=== PATIENT | female | born 1970 | race Caucasian/White ===

== ENCOUNTER 2020-05-11 22:15 | Inpatient (IN) | payer MEDICAID, OTHER ==
[~2020-05-11] VITALS: Ht 160 cm; Wt 92.3 kg
[2020-05-11] MEDS ORDERED: PANTOPRAZOLE 80 MG in SODIUM CHLORIDE 0.9% 50 ML IVPB ONE (22:21)
[2020-05-11] MEDS ORDERED: OCTREOTIDE 50 MCG/ML, 1ML (0.05MG/ML) IVPush ONE (22:30)
[2020-05-11] MEDS ORDERED: OCTREOTIDE 100MCG/ML, 1ML (0.1MG/ML) IVPush ONE (22:30)
--- NOTE | 2020-05-11 22:30 | NUR ---
THIS IS A 49Y F BIB EMS FROM [facility], PT WAS SEEN THERE FOR ABD PAIN WITH BLACK TARRY STOOLS FOR A FEW DAYS. PT RECENTLY QUIT DRINKING 5 DAYS AGO AND WAS DRINKING 1/2 LITER A DAY OF VODKA. PT DENIES ALL SYMPTOMS OF WITHDRAWL AT THIS TIME. PT CONNECTED TO ALL MONITORING VSS NADN. CALL LIGHT IN REACH.
--- NOTE | 2020-05-11 22:39 | NUR ---
DR. RHODES AT BEDSIDE FOR RECTAL EXAM, RN TO ESCORT
[2020-05-11 22:54] LABS: BASOPHILS # (AUTO) 0.02 x10^3/uL (0-0.1); BASOPHILS % (AUTO) 0 % (0-1); EOSINOPHILS # (AUTO) 0.11 x10^3/uL (0-0.4); EOSINOPHILS % (AUTO) 1 % (1-7); LYMPHOCYTES # (AUTO) 1.69 x10^3/uL (1-3.4); LYMPHOCYTES % (AUTO) 14 % (22-44); MD NO; MEAN CORPUSCULAR HEMOGLOBIN 34.7 pg (27.0-34.8); MEAN CORPUSCULAR HGB CONC 33.1 g/dL (32.4-35.8); MEAN CORPUSCULAR VOLUME 104.6 fL (80-100); MEAN PLATELET VOLUME 9.2 fL (7.4-10.4); MONOCYTES # (AUTO) 1.26 x10^3/uL (0.2-0.8); MONOCYTES % (AUTO) 11 % (2-9); NEUTROPHILS # (AUTO) 8.96 x10^3/uL (1.8-6.8); NEUTROPHILS % (AUTO) 74 % (42-75); PLATELET COUNT 252 x10^3/uL (130-400); RED BLOOD COUNT 3.74 x10^6/uL (3.82-5.3)
[2020-05-11 22:56] LABS: INTERNATIONAL NORMALIZED RATIO 1.38 (0.93-1.1); PROTHROMBIN TIME 14.3 Seconds (9.6-11.5)
[2020-05-11] MEDS ORDERED: LORazepam 2 MG/ML, 1ML IVPush ONE (23:00)
[2020-05-11] MEDS ORDERED: OCTREOTIDE 100MCG/ML, 1ML (0.1MG/ML) ONE (23:00)
[2020-05-11 23:04] LABS: ALANINE AMINOTRANSFERASE 69 U/L (12-78); ALBUMIN 2.8 g/dL (3.4-5.0); ANION GAP 9 mmol/L (5-15); CHLORIDE 98 mmol/L (98-107); CREATININE 0.72 mg/dL (0.55-1.02)
[2020-05-11 23:06] LABS: ALKALINE PHOSPHATASE 213 U/L (45-117); BILIRUBIN,TOTAL 7.1 mg/dL (0.2-1.0); TOTAL PROTEIN 6.6 g/dL (6.4-8.2)
[2020-05-11] MEDS ORDERED: LORazepam 2 MG/ML, 1ML ONE (23:12)
[2020-05-11] MEDS ORDERED: DOCUSATE 100 MG CAPSULE PO PRN (23:30)
[2020-05-11] MEDS ORDERED: LABETALOL 5MG/ML, 20ML IVPush PRN (23:30)
[2020-05-11] MEDS ORDERED: ONDANSETRON 2MG/ML, 2ML IVPush PRN (23:30)
[2020-05-12] MEDS ORDERED: LORazepam 2 MG/ML, 1ML IV PRN ×4
--- NOTE | 2020-05-12 00:01 | NUR ---
REPORT TO JADON SAUNDERS READY FOR TRANSPORT TO FLOOR ROOM [id number]
[2020-05-12 00:21] VITALS: BP 99/68
[2020-05-12] MEDS ORDERED: THIAMINE 200 MG, MVI ADULT 10 ML, FOLIC ACID 1 MG in D5%-0.9% NACL 1,000 ML IV ONE (00:30)
[2020-05-12] MEDS: OCTREOTIDE 500 MCG in SODIUM CHLORIDE 0.9% 99 ML IV SCH ×3 (03:00→21:28)
[2020-05-12] MEDS: PANTOPRAZOLE 80 MG in SODIUM CHLORIDE 0.9% 100 ML IV SCH ×3 (03:00→21:25)
[2020-05-12 05:51] LABS: CHLORIDE 102 mmol/L (98-107)
[2020-05-12 06:07] LABS: ANION GAP 7 mmol/L (5-15); CALCIUM 8.4 mg/dL (8.5-10.1); CREATININE 0.74 mg/dL (0.55-1.02)
[2020-05-12 07:24] VITALS: BP 94/66
[2020-05-12] MEDS: LORazepam 2 MG/ML, 1ML IV PRN ×2 (09:06→14:52)
[2020-05-12] MEDS ORDERED: FURO40TA6 PO (12:49)
[2020-05-12] MEDS ORDERED: TRAZ-175 PO (12:49)
[2020-05-12] MEDS ORDERED: TRIA15OI10 TP (12:49)
[2020-05-12 13:01] VITALS: BP 106/69
[2020-05-12] MEDS ORDERED: PROPOFOL 10 MG/ML, 50ML ONE (13:28)
[2020-05-12] MEDS: CEFTRIAXONE 1,000 MG in DEXTROSE 5% 50 ML IV SCH (14:56)
[2020-05-12] MEDS ORDERED: morphine SULFATE 10 MG/ML, 1ML ONE (16:23)
[2020-05-12] MEDS ORDERED: morphine SULFATE 10 MG/ML, 1ML IVPush PRN ×2 (16:30→19:30)
[2020-05-12 18:39] VITALS: BP 95/65
[2020-05-13 00:44] VITALS: BP 99/66
[2020-05-13 05:32] LABS: INTERNATIONAL NORMALIZED RATIO 1.25 (0.93-1.1); PROTHROMBIN TIME 12.9 Seconds (9.6-11.5)
[2020-05-13 05:34] LABS: ALBUMIN 2.4 g/dL (3.4-5.0); ANION GAP 5 mmol/L (5-15); CHLORIDE 105 mmol/L (98-107)
[2020-05-13 05:36] LABS: MEAN CORPUSCULAR HEMOGLOBIN 35.8 pg (27.0-34.8); MEAN CORPUSCULAR HGB CONC 33.6 g/dL (32.4-35.8); MEAN CORPUSCULAR VOLUME 106.5 fL (80-100); MEAN PLATELET VOLUME 9.1 fL (7.4-10.4); PLATELET COUNT 160 x10^3/uL (130-400); RED BLOOD COUNT 2.99 x10^6/uL (3.82-5.3); RED CELL DISTRIBUTION WIDTH 17.1 % (9.6-15.2)
[2020-05-13 05:38] LABS: ALANINE AMINOTRANSFERASE 82 U/L (12-78); ALKALINE PHOSPHATASE 150 U/L (45-117); BILIRUBIN,TOTAL 5.8 mg/dL (0.2-1.0); TOTAL PROTEIN 5.6 g/dL (6.4-8.2)
[2020-05-13 06:08] LABS: BASOPHILS # (AUTO) 0.03 x10^3/uL (0-0.1); BASOPHILS % (AUTO) 1 % (0-1); EOSINOPHILS # (AUTO) 0.19 x10^3/uL (0-0.4); EOSINOPHILS % (AUTO) 3 % (1-7); LYMPHOCYTES # (AUTO) 0.82 x10^3/uL (1-3.4); LYMPHOCYTES % (AUTO) 13 % (22-44); MD SCAN; MONOCYTES # (AUTO) 0.76 x10^3/uL (0.2-0.8); MONOCYTES % (AUTO) 12 % (2-9); NEUTROPHILS # (AUTO) 4.62 x10^3/uL (1.8-6.8); NEUTROPHILS % (AUTO) 72 % (42-75)
[2020-05-13] MEDS: PANTOPRAZOLE 80 MG in SODIUM CHLORIDE 0.9% 100 ML IV SCH (06:46)
[2020-05-13] MEDS: OCTREOTIDE 500 MCG in SODIUM CHLORIDE 0.9% 99 ML IV SCH ×2 (06:48→16:22)
[2020-05-13 06:49] VITALS: BP 95/62
[2020-05-13 13:22] VITALS: BP 98/68
[2020-05-13] MEDS: PANTOPRAZOLE 40 MG IV IVPush SCH (13:30)
[2020-05-13] MEDS: CEFTRIAXONE 1,000 MG in DEXTROSE 5% 50 ML IV SCH (15:15)
[2020-05-13] MEDS: OXYcodone/APAP 5/325MG TABLET PO PRN (15:15)
[2020-05-13 18:45] VITALS: BP 106/73
[2020-05-14 00:49] VITALS: BP 88/55
[2020-05-14] MEDS: OCTREOTIDE 500 MCG in SODIUM CHLORIDE 0.9% 99 ML IV SCH ×3 (01:47→22:28)
[2020-05-14] MEDS: PANTOPRAZOLE 40 MG IV IVPush SCH ×2 (01:53→13:21)
[2020-05-14 05:42] LABS: BASOPHILS # (AUTO) 0.09 x10^3/uL (0-0.1); BASOPHILS % (AUTO) 2 % (0-1); EOSINOPHILS % (AUTO) 4 % (1-7); LYMPHOCYTES # (AUTO) 0.77 x10^3/uL (1-3.4); LYMPHOCYTES % (AUTO) 15 % (22-44); MD NO; MEAN CORPUSCULAR HGB CONC 32.8 g/dL (32.4-35.8); MEAN CORPUSCULAR VOLUME 106.8 fL (80-100); MEAN PLATELET VOLUME 9.1 fL (7.4-10.4); MONOCYTES # (AUTO) 0.57 x10^3/uL (0.2-0.8); MONOCYTES % (AUTO) 11 % (2-9); NEUTROPHILS % (AUTO) 69 % (42-75); PLATELET COUNT 155 x10^3/uL (130-400); RED BLOOD COUNT 2.91 x10^6/uL (3.82-5.3); RED CELL DISTRIBUTION WIDTH 17.1 % (9.6-15.2)
[2020-05-14 05:55] LABS: ALBUMIN 2.3 g/dL (3.4-5.0); ANION GAP 5 mmol/L (5-15); CHLORIDE 106 mmol/L (98-107)
[2020-05-14 05:59] LABS: ALANINE AMINOTRANSFERASE 95 U/L (12-78); ALKALINE PHOSPHATASE 148 U/L (45-117); BILIRUBIN,TOTAL 5.5 mg/dL (0.2-1.0); CREATININE 0.71 mg/dL (0.55-1.02); TOTAL PROTEIN 5.7 g/dL (6.4-8.2)
[2020-05-14 06:26] VITALS: BP 98/64
[2020-05-14 13:28] VITALS: BP 101/66
[2020-05-14] MEDS ORDERED: CEFTRIAXONE PMX 1GM/50ML 50 ML IV SCH (14:00)
[2020-05-14 19:11] VITALS: BP 101/68
[2020-05-14] MEDS: OXYcodone/APAP 5/325MG TABLET PO PRN (20:25)
[2020-05-15] MEDS: PANTOPRAZOLE 40 MG IV IVPush SCH ×2 (01:40→13:30)
[2020-05-15 01:42] VITALS: BP 94/58
[2020-05-15 06:21] VITALS: BP 97/63
[2020-05-15] MEDS: OCTREOTIDE 500 MCG in SODIUM CHLORIDE 0.9% 99 ML IV SCH (09:34)
[2020-05-15] MEDS ORDERED: PROP10TA16 PO (11:55)
[2020-05-15] MEDS ORDERED: OMEP-110 PO (11:55)
[2020-05-15 12:07] VITALS: BP 97/63
[2020-05-15] MEDS ORDERED: PROPRANOLOL 10 MG TABLET PO SCH (18:00)
== END 2020-05-15 14:40 | disposition home or self-care (01) | DRG 368 ==
LOC: ED 22:54 → EDIP 23:36 → 4WST 05-12 00:11 → DCLOUNGE 05-15 14:34
PROVIDERS: ADMIT Family Medicine; ATTEND Internal Medicine
PROC: 06L38CZ Occlusion of Esophageal Vein with Extraluminal Device, Via Natural or Artificial Opening Endoscopic (ICD-10-PCS; principal; 2020-05-12 14:00)
DX: I85.01 Esophageal varices with bleeding (principal); I81 Portal vein thrombosis; D68.9 Coagulation defect, unspecified; E87.1 Hypo-osmolality and hyponatremia; K76.6 Portal hypertension; K80.20 Calculus of gallbladder without cholecystitis without obstruction; K70.30 Alcoholic cirrhosis of liver without ascites; B19.20 Unspecified viral hepatitis C without hepatic coma; D64.9 Anemia, unspecified; E78.5 Hyperlipidemia, unspecified; F10.20 Alcohol dependence, uncomplicated; Y90.9 Presence of alcohol in blood, level not specified; K31.89 Other diseases of stomach and duodenum; Z87.891 Personal history of nicotine dependence
CPT/HCPCS: 36415; J7042; 76700; 80048; 80053; 82105; 83690; 83735; 84100; 85014; 85018; 85025; 85610; 86850; 86900; 87635; 93005; G0378; J0696; J2354; J2704; J3411; C9113; J2060; J2270